=== PATIENT | male | born 1940 | race Caucasian/White ===

== ENCOUNTER 2025-08-12 09:37 | Day surgery (SDC) | payer MEDICARE ==
[2025-08-11 14:46] VITALS: BMI 25.6
[2025-08-12 10:21] LABS: Hematocrit 35.5 % (38.8-50.0); Hemoglobin 12.0 g/dL (13.5-17.5)
[2025-08-12 10:53] LABS: Anion Gap 13 mmol/L (10-20); BUN (Urea Nitrogen) 20 mg/dL (8.4-25.7); Calc. Creatinine Clearance 56 mL/min (70-130); Calcium 9.6 mg/dL (7.8-10.44); Carbon Dioxide 25 mmol/L (23-31); Chloride 108 mmol/L (98-107); Glucose 230 mg/dL (83-110); Potassium 5.1 mmol/L (3.5-5.1); Sodium 141 mmol/L (136-145)
[2025-08-12] MEDS ORDERED: PROPOFOL 40 ML ONE (11:36)
[2025-08-12] MEDS ORDERED: Lidocaine 1% PF 5 ML VIAL ONE (11:36)
[2025-08-12] MEDS ORDERED: Bacitracin 1 PK ONE (12:07)
[2025-08-12] MEDS ORDERED: Lidocaine 1% w/Epinephrine 1:200K 30 ML VIAL ONE (12:07)
[2025-08-12] MEDS ORDERED: HYDROcodone/Acetaminophen 5/325 mg Tablet ONE (14:48)
== END 2025-08-12 15:28 | disposition home or self-care (01) ==
LOC: CSHSDC 09:37
PROVIDERS: ATTEND Specialist
PROC: 0KB20ZZ Excision of Right Neck Muscle, Open Approach (ICD-10-PCS; principal; 2025-08-12)
DX: Q18.0 Sinus, fistula and cyst of branchial cleft (principal); K11.23 Chronic sialoadenitis; E11.9 Type 2 diabetes mellitus without complications; E78.00 Pure hypercholesterolemia, unspecified; H61.23 Impacted cerumen, bilateral; Z85.828 Personal history of other malignant neoplasm of skin; Z79.84 Long term (current) use of oral hypoglycemic drugs; Z79.899 Other long term (current) drug therapy
CPT/HCPCS: 42815; 80048; 85014; 85018; A6258; J1100; J2704; 36415; 88304